=== PATIENT | male | born 1965 | race Caucasian/White ===

== ENCOUNTER 2019-12-15 20:48 | Observation (INO) | payer OTHER ==
[2019-12-15] MEDS ORDERED: Sodium Chloride 0.9% 1000 ML 1,000 ML IV STA (21:08)
[2019-12-15] MEDS ORDERED: TYLENOL 325 MG PO STA (21:08)
[2019-12-15] MEDS ORDERED: ROCEPHIN 1 Gm-D5w 50 ml Bag** 1 G/50 ML IVPB IV STA (21:08)
--- NOTE | 2019-12-15 21:10 | ERPHSYRPT ---
- History of Present Illness Time Seen by Provider: 12/15/19 21:00 Source: patient Exam Limitations: no limitations Patient Subjective Stated Complaint: Fever Allergies/Adverse Reactions: No Known Drug Allergies Allergy (Unverified 12/15/19 20:53) Ordered Tests: Active Orders 24 hr Category Date Time Status IV Insertion STAT Care 12/15/19 21:08 Ordered CHEST 1 VIEW (PORTABLE) Stat Exams 12/15/19 21:09 Ordered BLOOD CULTURE Stat Lab 12/15/19 21:09 Ordered CBC W DIFF Stat Lab 12/15/19 21:08 Ordered CMP Stat Lab 12/15/19 21:08 Ordered Lactic Acid Stat Lab 12/15/19 21:08 Ordered UA W/RFX UR CULTURE Stat Lab 12/15/19 21:08 Uncollected Medication Summary Generic Name Dose Route Start Last Admin Trade Name Freq PRN Reason Stop Dose Admin Acetaminophen 650 mg 12/15/19 21:08 Tylenol 325 Mg PO 12/15/19 21:09 STAT STA Sodium Chloride 1,000 mls @ 999 mls/hr 12/15/19 21:08 Sodium Chloride 0.9% 1000 Ml IV 12/15/19 22:08 .Q1H1M STA Ceftriaxone Sodium/Dextrose 1 g in 50 mls @ 100 mls/hr 12/15/19 21:08 Rocephin 1 Gm-D5w 50 Ml Bag IV 12/15/19 21:37 STAT STA - Departure Referrals: CRISTIANO REN [Primary Care Provider] -
--- NOTE | 2019-12-15 21:21 | ERPHSYRPT ---
- History of Present Illness Time Seen by Provider: 12/15/19 21:00 Source: patient Exam Limitations: no limitations Patient Subjective Stated Complaint: "my heart rate is high and I have a fever." Triage Nursing Assessment: pt presented alert et oriented x3 answering questions appropriately. Pt reported high fever and high heart rate at home. pt reported history of colorectal cancer with metastisis to the liver. Pt reported taking Xeloda for home chemo treatemnt. Pt denied headache, dizziness, nausea/vomiting, diarrhea, chest pain, or shortness of breath. Pupils 3mm reactive. Oral mucosa pink/dry with sores noted to the lips. neck supple non-tender without noted JVD. Symmetrical chest expansion. Lungs clear with adequate airflow. Heart tones regular/clear. radial pulses equal bilateral. Abdomen soft non-distended and non-tender. Bowel sounds present in all quadrants. No noted dependent edema. Physician History: K/C/O Stage 4 Colon ca with Liver mets, on Xeloda, PO Chemo. Last one was 2 days ago. Fever for 2 days, not feeling well and HR is high ( 103) Timing/Duration: day(s) (2) Severity: moderate Associated Symptoms: other (Palpitations) Allergies/Adverse Reactions: No Known Drug Allergies Allergy (Unverified 12/15/19 20:53) Home Medications: Alprazolam 1 mg [Xanax 1 mg] 1 tab PO BID 12/15/19 [History] Calcium Carbonate 1 tab PO DAILY 12/15/19 [History] Capecitabine [Xeloda] 4 tab PO BID 12/15/19 [History] Cholecalciferol (Vitamin D3) [Vitamin D3] 1 tab PO DAILY 12/15/19 [History] Colestipol HCl [Colestid] 2 tab PO BID 12/15/19 [History] Dicyclomine HCl 1 cap PO TID 12/15/19 [History] Diphenoxylate HCl/Atropine [Lomotil 2.5-0.025 mg Tablet] 2 tab PO QID PRN 12/15/19 [History] Doxycycline Hyclate 100 mg [Vibramycin 100 MG] 1 cap PO BID 12/15/19 [History] Famotidine [Pepcid] 1 tab PO DAILY 12/15/19 [History] Hydrocodone/Acetaminophen [Hydrocodone-Acetamin 5-325 mg] 1 tab PO Q6H PRN 12/15/19 [History] Hydrocortisone 2.5% 30 gm [Anusol-Hc 2.5% Cream 30 gm] 1 unit TOP DAILY 12/15/19 [History] Loperamide HCl [Loperamide] 2 tab PO DAILY PRN 12/15/19 [History] Nystatin/TCN/Hc/Diphenhydram [Alma's Magic Mouthwash] 5 ml PO QID 12/15/19 [History] Ondansetron [Ondansetron Odt] 2 tab PO TID 12/15/19 [History] Oxycodone HCl/Acetaminophen [Oxycodone-Acetaminophen 5-325] 1 tab PO Q4H PRN 12/15/19 [History] Potassium Chloride [Klor-Con M20] 2 tab PO DAILY 12/15/19 [History] Prochlorperazine Maleate 10 mg [Compazine 10 mg] 1 tab PO Q6H PRN 12/15/19 [History] Sertraline HCl 50 mg [Zoloft 50 mg Tablet] 1 tab PO AC 12/15/19 [History] Hx Tetanus, Diphtheria Vaccination/Date Given: Yes Travel Risk - International Travel Have you traveled outside of the country in past 3 weeks: No - Coronavirus Screening Are you exhibiting any of the following symptoms?: Yes Symptoms: Fever Close contact with a COVID-19 positive Pt in past 14-21 Days: No - Review of Systems Constitutional: Fever, Chills Eyes: No Symptoms Ears, Nose, & Throat: No Symptoms Respiratory: No Cough, No Dyspnea Cardiac: Palpitations, No Chest Pain, No Edema, No Syncope Abdominal/Gastrointestinal: No Abdominal Pain, No Nausea, No Vomiting, No Diarrhea Genitourinary Symptoms: No Dysuria Musculoskeletal: No Back Pain, No Neck Pain Skin: No Rash Neurological: No Dizziness, No Focal Weakness, No Sensory Changes Psychological: No Symptoms Endocrine: No Symptoms All Other Systems: Reviewed and Negative - Past Medical History Pertinent Past Medical History: Yes Neurological History: No Pertinent History ENT History: No Pertinent History Cardiac History: Hypertension Respiratory History: No Pertinent History Endocrine Medical History: No Pertinent History GI Medical History: Colorectal Cancer, Liver Cancer Psycho-Social History: Anxiety - Past Surgical History Past Surgical History: Yes Other Surgical History: Port placed to right chest - Social History Smoking Status: Never smoker Exposure to second hand smoke: No Drug Use: none Patient Lives Alone: No - Nursing Vital Signs Nursing Vital Signs: Initial Vital Signs Temperature 102.8 F 12/15/19 20:49 Pulse Rate 105 H 12/15/19 20:49 Respiratory Rate 18 12/15/19 20:49 Blood Pressure 157/78 12/15/19 20:49 O2 Sat by Pulse Oximetry 97 12/15/19 20:49 Pain Scale Pain Intensity 0 - Physical Exam General Appearance: no apparent distress, alert Eye Exam: PERRL/EOMI, eyes nml inspection Ears, Nose, Throat Exam: normal ENT inspection, TMs normal, pharynx normal, moist mucous membranes Neck Exam: normal inspection, non-tender, supple, full range of motion Respiratory Exam: normal breath sounds, lungs clear, No respiratory distress Cardiovascular Exam: regular rate/rhythm, normal heart sounds, normal peripheral pulses Gastrointestinal/Abdomen Exam: soft, normal bowel sounds, No tenderness, No mass Back Exam: normal inspection, normal range of motion, No CVA tenderness, No vertebral tenderness Extremity Exam: normal inspection, normal range of motion, pelvis stable Neurologic Exam: alert, oriented x 3, cooperative, normal mood/affect, nml cerebellar function, nml station & gait, sensation nml, No motor deficits Skin Exam: normal color, warm, dry, No rash Lymphatic Exam: No adenopathy SpO2: 97 - Course Nursing assessment & vital signs reviewed: Yes - Radiology Exams Chest X-ray Interpretation: Interpreted by me, No Pneumonia Ordered Tests: Active Orders 24 hr Category Date Time Status EKG-ER Only STAT Care 12/15/19 21:21 Active IV Insertion STAT Care 12/15/19 21:08 Active Order K Level 2 hours post-inf 2 HRS POST K-INFUSED Care 12/15/19 22:12 Active Telemetry q4h Care 12/15/19 22:12 Active CHEST 1 VIEW (PORTABLE) Stat Exams 12/15/19 21:09 Taken BLOOD CULTURE Stat Lab 12/15/19 21:40 Received CBC W DIFF Stat Lab 12/15/19 21:30 Completed CMP Stat Lab 12/15/19 21:30 Completed Lactic Acid Stat Lab 12/15/19 21:08 Completed Lactic Acid Stat Lab 12/15/19 23:28 Received TROPONIN Stat Lab 12/15/19 21:30 Completed UA W/RFX UR CULTURE Stat Lab 12/15/19 23:00 Completed Medication Summary Generic Name Dose Route Start Last Admin Trade Name Nehemias PRN Reason Stop Dose Admin Potassium Chloride 20 meq in 100 mls @ 50 mls/hr 12/15/19 22:12 12/15/19 22:27 Potassium Chloride 20 Meq In Water 100ml IV 12/16/19 00:11 50 mls/hr STAT ONE Administration Discontinued Medications Generic Name Dose Route Start Last Admin Trade Name Nehemias EWINGN Reason Stop Dose Admin Acetaminophen 650 mg 12/15/19 21:08 12/15/19 21:49 Tylenol 325 Mg PO 12/15/19 21:09 650 mg STAT STA Administration Acetaminophen Confirm 12/15/19 21:43 Tylenol 325 Mg Administered 12/15/19 21:44 Dose 650 mg .ROUTE .STK-MED ONE Sodium Chloride 1,000 mls @ 999 mls/hr 12/15/19 21:08 12/15/19 23:04 Sodium Chloride 0.9% 1000 Ml IV 12/15/19 22:08 Infused .Q1H1M STA Infusion Ceftriaxone Sodium/Dextrose 1 g in 50 mls @ 100 mls/hr 12/15/19 21:08 22:28 Rocephin 1 Gm-D5w 50 Ml Bag IV 12/15/19 21:37 Infused STAT STA Infusion Sodium Chloride Confirm 12/15/19 21:43 Sodium Chloride 0.9% 1000 Ml Administered 12/15/19 21:44 Dose 1,000 mls @ ud .ROUTE .STK-MED ONE Ceftriaxone Sodium/Dextrose Confirm 12/15/19 21:43 Rocephin 1 Gm-D5w 50 Ml Bag Administered 12/15/19 21:44 Dose 1 g in 50 mls @ ud IV .STK-MED ONE Potassium Chloride Confirm 12/15/19 22:16 Potassium Chloride 20 Meq In Water 100ml Administered 12/15/19 22:17 Dose 100 mls @ ud IV .STK-MED ONE Lactated Ringer's 1,000 mls @ 999 mls/hr 12/15/19 22:24 12/15/19 23:43 Lactated Ringers IV 12/15/19 23:24 Infused .Q1H1M ONE Infusion Lactated Ringer's Confirm 12/15/19 22:26 Lactated Ringers Administered 12/15/19 22:27 Dose 1,000 mls @ ud IV .STK-MED ONE Potassium Chloride 40 meq 12/15/19 22:12 12/15/19 22:27 Klor Con 10 Meq PO 12/15/19 22:13 40 meq STAT ONE Administration Potassium Chloride Confirm 12/15/19 22:16 Klor Con 10 Meq Administered 12/15/19 22:17 Dose 40 meq PO .STK-MED ONE Lab/Rad Data: Laboratory Result Diagrams 12/15/19 21:30 12/15/19 21:30 Laboratory Results 12/15/19 12/15/19 12/15/19 Range/Units 23:00 23:00 21:30 WBC (4.0-10.5) K/mm3 RBC (4.1-5.6) M/mm3 Hgb (12.5-18.0) gm/dl Hct (42-50) % MCV (78-100) fl MCH (26-32) pg MCHC (32-36) g/dl RDW (11.5-14.0) % Plt Count (150-450) K/mm3 MPV (7.5-11.0) fl Gran % (36.0-66.0) % Eos # (Auto) (0-0.5) Absolute Lymphs (auto) (1.0-4.6) Absolute Monos (auto) (0.0-1.3) Lymphocytes % (24.0-44.0) % Monocytes % (0.0-12.0) % Eosinophils % (0.00-5.0) % Basophils % (0.0-0.4) % Absolute Granulocytes (1.4-6.9) Basophils # (0-0.4) Sodium (137-145) mmol/L Potassium (3.5-5.1) mmol/L Chloride (98-107) mmol/L Carbon Dioxide (22-30) mmol/L Anion Gap (5-15) MEQ/L BUN (9-20) mg/dL Creatinine (0.66-1.25) mg/dL Estimated GFR ML/MIN Glucose (74-106) mg/dL Lactic Acid (0.4-2.0) Calcium (8.4-10.2) mg/dL Total Bilirubin (0.2-1.3) mg/dL AST (17-59) U/L ALT (0-50) U/L Alkaline Phosphatase (38-126) U/L Troponin I < 0.012 (0.000-0.034) ng/mL Serum Total Protein (6.3-8.2) g/dL Albumin (3.5-5.0) g/dL Urine Color YELLOW (YELLOW) Urine Appearance CLEAR (CLEAR) Urine pH 5.0 (5-6) Ur Specific [place] 1.024 (1.005-1.025) Urine Protein 100 (Negative) Urine Ketones NEGATIVE (NEGATIVE) Urine Blood SMALL (0-5) Faisal/ul Urine Nitrite NEGATIVE (NEGATIVE) Urine Bilirubin NEGATIVE (NEGATIVE) Urine Urobilinogen 4 (0-1) mg/dL Ur Leukocyte Esterase NEGATIVE (NEGATIVE) Urine WBC (Auto) 3-5 (0-5) /HPF Urine RBC (Auto) 6-10 (0-2) /HPF U Epithel Cells (Auto) NONE (FEW) /HPF Urine Bacteria (Auto) NONE (NEGATIVE) /HPF Urine Mucus (Auto) SLIGHT (NEGATIVE) /HPF Urine Culture Reflexed NO (NO) Urine Glucose NEGATIVE (NEGATIVE) mg/dL Influenza Type A Ag NEGATIVE (NEGATIVE) Influenza Type B Ag NEGATIVE (NEGATIVE) RSV (PCR) NEGATIVE (Negative) Group A Strep Antibody (NEGATIVE) Slides for Path Review 12/15/19 12/15/19 12/15/19 Range/Units 21:30 21:30 21:30 WBC 9.4 (4.0-10.5) K/mm3 RBC 4.38 (4.1-5.6) M/mm3 Hgb 12.0 L (12.5-18.0) gm/dl Hct 37.9 L (42-50) % MCV 86.5 (78-100) fl MCH 27.4 (26-32) pg MCHC 31.7 L (32-36) g/dl RDW 24.1 H (11.5-14.0) % Plt Count 132 L (150-450) K/mm3 MPV 10.7 (7.5-11.0) fl Gran % 74.8 H (36.0-66.0) % Eos # (Auto) 0.06 (0-0.5) Absolute Lymphs (auto) 1.21 (1.0-4.6) Absolute Monos (auto) 1.08 (0.0-1.3) Lymphocytes % 12.9 L (24.0-44.0) % Monocytes % 11.5 (0.0-12.0) % Eosinophils % 0.6 (0.00-5.0) % Basophils % 0.2 (0.0-0.4) % Absolute Granulocytes 7.02 H (1.4-6.9) Basophils # 0.02 (0-0.4) Sodium 133 L (137-145) mmol/L Potassium 2.8 L* (3.5-5.1) mmol/L Chloride 95 L (98-107) mmol/L Carbon Dioxide 29 (22-30) mmol/L Anion Gap 11.8 (5-15) MEQ/L BUN 14 (9-20) mg/dL Creatinine 0.97 (0.66-1.25) mg/dL Estimated GFR > 60.0 ML/MIN Glucose 137 H (74-106) mg/dL Lactic Acid (0.4-2.0) Calcium 8.5 (8.4-10.2) mg/dL Total Bilirubin 1.40 H (0.2-1.3) mg/dL AST 42 (17-59) U/L ALT 22 (0-50) U/L Alkaline Phosphatase 134 H (38-126) U/L Troponin I (0.000-0.034) ng/mL Serum Total Protein 7.5 (6.3-8.2) g/dL Albumin 3.8 (3.5-5.0) g/dL Urine Color (YELLOW) Urine Appearance (CLEAR) Urine pH (5-6) Ur Specific [place] (1.005-1.025) Urine Protein (Negative) Urine Ketones (NEGATIVE) Urine Blood (0-5) Faisal/ul Urine Nitrite (NEGATIVE) Urine Bilirubin (NEGATIVE) Urine Urobilinogen (0-1) mg/dL Ur Leukocyte Esterase (NEGATIVE) Urine WBC (Auto) (0-5) /HPF Urine RBC (Auto) (0-2) /HPF U Epithel Cells (Auto) (FEW) /HPF Urine Bacteria (Auto) (NEGATIVE) /HPF Urine Mucus (Auto) (NEGATIVE) /HPF Urine Culture Reflexed (NO) Urine Glucose (NEGATIVE) mg/dL Influenza Type A Ag (NEGATIVE) Influenza Type B Ag (NEGATIVE) RSV (PCR) (Negative) Group A Strep Antibody NOT DETECTED (NEGATIVE) Slides for Path Review YES 12/15/19 Range/Units 21:08 WBC (4.0-10.5) K/mm3 RBC (4.1-5.6) M/mm3 Hgb (12.5-18.0) gm/dl Hct (42-50) % MCV (78-100) fl MCH (26-32) pg MCHC (32-36) g/dl RDW (11.5-14.0) % Plt Count (150-450) K/mm3 MPV (7.5-11.0) fl Gran % (36.0-66.0) % Eos # (Auto) (0-0.5) Absolute Lymphs (auto) (1.0-4.6) Absolute Monos (auto) (0.0-1.3) Lymphocytes % (24.0-44.0) % Monocytes % (0.0-12.0) % Eosinophils % (0.00-5.0) % Basophils % (0.0-0.4) % Absolute Granulocytes (1.4-6.9) Basophils # (0-0.4) Sodium (137-145) mmol/L Potassium (3.5-5.1) mmol/L Chloride (98-107) mmol/L Carbon Dioxide (22-30) mmol/L Anion Gap (5-15) MEQ/L BUN (9-20) mg/dL Creatinine (0.66-1.25) mg/dL Estimated GFR ML/MIN Glucose (74-106) mg/dL Lactic Acid 2.3 H (0.4-2.0) Calcium (8.4-10.2) mg/dL Total Bilirubin (0.2-1.3) mg/dL AST (17-59) U/L ALT (0-50) U/L Alkaline Phosphatase (38-126) U/L Troponin I (0.000-0.034) ng/mL Serum Total Protein (6.3-8.2) g/dL Albumin (3.5-5.0) g/dL Urine Color (YELLOW) Urine Appearance (CLEAR) Urine pH (5-6) Ur Specific [place] (1.005-1.025) Urine Protein (Negative) Urine Ketones (NEGATIVE) Urine Blood (0-5) Faisal/ul Urine Nitrite (NEGATIVE) Urine Bilirubin (NEGATIVE) Urine Urobilinogen (0-1) mg/dL Ur Leukocyte Esterase (NEGATIVE) Urine WBC (Auto) (0-5) /HPF Urine RBC (Auto) (0-2) /HPF U Epithel Cells (Auto) (FEW) /HPF Urine Bacteria (Auto) (NEGATIVE) /HPF Urine Mucus (Auto) (NEGATIVE) /HPF Urine Culture Reflexed (NO) Urine Glucose (NEGATIVE) mg/dL Influenza Type A Ag (NEGATIVE) Influenza Type B Ag (NEGATIVE) RSV (PCR) (Negative) Group A Strep Antibody (NEGATIVE) Slides for Path Review - Progress Progress: improved Progress Note: And is feeling better. Fever has come down. Patient is nontoxic. Lactic acid is 2.3. I discussed with Dr. Nelson and she agreed with admission. I discussed this with patient and his . Since patient has a colon cancer and he is on chemotherapy, we will go ahead and swab him for COVID also. 12/16/19 00:07 Discussed with : Suha Will see patient in: hospital (observation) Counseled pt/family regarding: lab results, diagnosis, rad results - Departure Departure Disposition: Observation Clinical Impression: Hypokalemia Fever Qualifiers: Fever type: unspecified Qualified Code(s): R50.9 - Fever, unspecified Condition: Stable Critical Care Time: No Referrals: CRISTIANO REN [Primary Care Provider] -
[2019-12-15] MEDS ORDERED: TYLENOL 325 MG ONE (21:43)
[2019-12-15] MEDS ORDERED: ROCEPHIN 1 Gm-D5w 50 ml Bag** 1 G/50 ML IVPB IV ONE (21:43)
[2019-12-15] MEDS ORDERED: Sodium Chloride 0.9% 1000 ML 1,000 ML ONE (21:43)
[2019-12-15 21:56] LABS: Absolute Neutrophil Ct (ANC) 7.02 (1.4-6.9); BASOPHIL % 0.2 % (0.0-0.4); Basophil (Absolute #) 0.02 (0-0.4); Eosinophil % 0.6 % (0.00-5.0); Eosinophil (Absolute #) 0.06 (0-0.5); Hematocrit 37.9 % (42-50); Lymphocyte (Absolute #) 1.21 (1.0-4.6); Lymphocytes % 12.9 % (24.0-44.0); Mean Cell Volume 86.5 fl (78-100); Mean Corpuscular Hemoglobin 27.4 pg (26-32); Mean Corpuscular Hgb Concent. 31.7 g/dl (32-36); Mean Platelet Volume 10.7 fl (7.5-11.0); Monocyte (Absolute #) 1.08 (0.0-1.3); Monocytes % 11.5 % (0.0-12.0); Neutrophil % 74.8 % (36.0-66.0); Platelet Count 132 K/mm3 (150-450); Red Blood Count 4.38 M/mm3 (4.1-5.6); Red Cell Distribution Width 24.1 % (11.5-14.0); White Blood Count 9.4 K/mm3 (4.0-10.5)
[2019-12-15 22:05] LABS: ALBUMIN 3.8 g/dL (3.5-5.0); ALKALINE PHOSPHATASE 134 U/L (38-126); ANION GAP 11.8 MEQ/L (5-15); BLOOD UREA NITROGEN 14 mg/dL (9-20); CHLORIDE 95 mmol/L (98-107); Calcium 8.5 mg/dL (8.4-10.2); Carbon Dioxide 29 mmol/L (22-30); Creatinine 1 0.97 mg/dL (0.66-1.25); Glucose 137 mg/dL (74-106); SGOT/AST 42 U/L (17-59); SGPT/ALT 22 U/L (0-50); SODIUM 133 mmol/L (137-145); Total Protein 7.5 g/dL (6.3-8.2)
[2019-12-15 22:12] LABS: Potassium 2.8 mmol/L (3.5-5.1)
[2019-12-15] MEDS ORDERED: Klor Con 10 MEQ PO ONE ×2 (22:12→22:16)
[2019-12-15] MEDS ORDERED: POTASSIUM CHLORIDE 20 mEq IN WATER 100ML 20 MEQ/100 ML BAG IV ONE (22:12)
[2019-12-15] MEDS ORDERED: POTASSIUM CHLORIDE 20 mEq IN WATER 100ML 100 ML IV ONE (22:16)
[2019-12-15] MEDS ORDERED: Lactated Ringers 1,000 ML IV ONE ×2 (22:24→22:26)
[2019-12-15 23:24] LABS: Appearance CLEAR (CLEAR); Bilirubin NEGATIVE (NEGATIVE); Blood SMALL Ery/ul (0-5); Glucose NEGATIVE (NEGATIVE); Ketones NEGATIVE (NEGATIVE); Leukocyte Esterase NEGATIVE (NEGATIVE); Mucus SLIGHT /HPF (NEGATIVE); Nitrite NEGATIVE (NEGATIVE); Protein,Urine Dip 100 (Negative); Specific Gravity 1.024 (1.005-1.025); Urobilinogen 4 mg/dL (0-1)
[2019-12-15 23:35] LABS: Slide Review 1 YES
[2019-12-15 23:41] LABS: INFLUENZA A NEGATIVE (NEGATIVE); INFLUENZA B NEGATIVE (NEGATIVE); RESPIRATORY SYNCTIAL VIRUS NEGATIVE (Negative)
[2019-12-16] MEDS: Sodium Chloride 0.9% 1000 ML 1,000 ML IV SCH ×2 (01:56→11:17)
[2019-12-16] MEDS: TYLENOL 325 MG PO PRN ×3 (03:46→19:36)
[2019-12-16 04:05] LABS: ALBUMIN 3.1 g/dL (3.5-5.0); ALKALINE PHOSPHATASE 115 U/L (38-126); ANION GAP 10.2 MEQ/L (5-15); BLOOD UREA NITROGEN 12 mg/dL (9-20); CHLORIDE 97 mmol/L (98-107); Calcium 7.7 mg/dL (8.4-10.2); Carbon Dioxide 27 mmol/L (22-30); Creatinine 1 0.78 mg/dL (0.66-1.25); Glucose 127 mg/dL (74-106); SGOT/AST 35 U/L (17-59); SGPT/ALT 19 U/L (0-50); SODIUM 131 mmol/L (137-145); Total Protein 6.5 g/dL (6.3-8.2)
[2019-12-16] MEDS ORDERED: Klor Con 10 MEQ PO ONE ×3 (06:12→18:42)
--- NOTE | 2019-12-16 08:43 | XRAY ---
Indication: Fever. Comparison: August 13, 2010. Portable chest remains clear. Heart is not enlarged with new right Port-A-Cath. Bony thorax intact. Impression: Nonacute chest.
[2019-12-16] MEDS ORDERED: PROCHLORPERAZINE MALEATE 10 MG PO PRN (08:55)
[2019-12-16] MEDS ORDERED: NON-FORMULARY ITEM (Nystatin/Tcn/Hc/Diphenhydram** [Mary's Magic Mouthwash***] 5 ML) PO PRN (08:55)
[2019-12-16] MEDS ORDERED: XANAX 1 MG PO PRN (08:55)
[2019-12-16] MEDS ORDERED: MEDICATION INTERVENTION MC SCH ×2 (09:15→09:30)
[2019-12-16] MEDS ORDERED: POTASSIUM CHLORIDE 20 mEq IN WATER 100ML 20 MEQ/100 ML BAG IV SCH (09:15)
[2019-12-16] MEDS ORDERED: Ambien 10 MG PO PRN (09:15)
[2019-12-16 09:32] LABS: Hematocrit 35.3 % (42-50); Hemoglobin 11.3 gm/dl (12.5-18.0); Mean Cell Volume 86.9 fl (78-100); Mean Corpuscular Hemoglobin 27.8 pg (26-32); Mean Platelet Volume 10.5 fl (7.5-11.0); Platelet Count 131 K/mm3 (150-450); Red Blood Count 4.06 M/mm3 (4.1-5.6); Red Cell Distribution Width 23.7 % (11.5-14.0); White Blood Count 7.7 K/mm3 (4.0-10.5)
[2019-12-16] MEDS ORDERED: MARY'S MOUTHWASH PO PRN (09:45)
[2019-12-16] MEDS ORDERED: Compazine 5 MG PO PRN (09:48)
[2019-12-16] MEDS ORDERED: Zithromax 500 MG/ 250 ML NaCl Premix 500 MG/250 ML IVPB IV SCH (10:00)
[2019-12-16] MEDS ORDERED: Vibramycin 100 MG PO SCH (10:00)
[2019-12-16] MEDS ORDERED: CAPECITABINE PO SCH (10:00)
[2019-12-16 10:22] LABS: Slide Review YES
[2019-12-16 10:34] LABS: Potassium 3.3 mmol/L (3.5-5.1)
[2019-12-16 10:56] LABS: MAGNESIUM 0.6 mg/dL (1.6-2.3)
[2019-12-16] MEDS ORDERED: Magnesium Sulfate 1 GM/2 ML VIAL*** 2 GM in Sodium Chloride 0.9% 100 ML IVPB 100 ML IV ONE (11:30)
[2019-12-16] MEDS ORDERED: Sodium Chloride 0.9% 100 ML IVPB 0 ML IV ONE (11:38)
[2019-12-16 17:55] LABS: ANION GAP 9.6 MEQ/L (5-15); BLOOD UREA NITROGEN 11 mg/dL (9-20); CHLORIDE 100 mmol/L (98-107); Calcium 7.8 mg/dL (8.4-10.2); Carbon Dioxide 26 mmol/L (22-30); Creatinine 1 0.75 mg/dL (0.66-1.25); Glucose 117 mg/dL (74-106); Potassium 3.5 mmol/L (3.5-5.1); SODIUM 132 mmol/L (137-145)
[2019-12-16 18:27] LABS: ANION GAP 9.3 MEQ/L (5-15); BLOOD UREA NITROGEN 10 mg/dL (9-20); CHLORIDE 103 mmol/L (98-107); Carbon Dioxide 26 mmol/L (22-30); Glucose 133 mg/dL (74-106); Potassium 3.4 mmol/L (3.5-5.1); SODIUM 134 mmol/L (137-145)
[2019-12-16 18:29] LABS: MAGNESIUM 0.9 mg/dL (1.6-2.3)
[2019-12-16] MEDS: Magnesium 1 Gm / 100 Ml D5W*** 100 ML IV SCH ×2 (18:54→19:50)
--- NOTE | 2019-12-16 19:01 | PCM.HP ---
History of Present Illness - Chief Complaint Chief Complaint: Fever, hypokalemia Date: 12/16/19 History of Present Illness: is a 54 year old male seen and examined this am following ER admission for hypokalemia and fever. Patient reports fever for two days. He reports a hx of colon cancer and is on chemo. He reports that he recently saw the cancer specialist and was started on HCTZ due to elevated bp that he had had the last three visits. Patient reports that he has been on potassium supplementation but that it was not increased when starting on HCTZ. Patient reports that he was not experiencing diarrhea until this am when he had two episodes. Patient reports that he has an appt with his cancer specialist this Monday. He reports he takes all of his medications as directed. He denies any chest pain cough cold symptoms nausea vomiting or constipation darks stools or blood in his stool. He reports that he does not drink a lot of water. Patient denies any painful urination or frequency. Patient denies any fevers this am. - Review of Systems Constitutional: Fever Ears, Nose, & Throat: No Symptoms Respiratory: No Cough, No Short Of Breath, No Wheezing Cardiac: No Chest Pain, No Edema Abdominal/Gastrointestinal: Diarrhea, No Abdominal Pain, No Nausea, No Vomiting, No Constipation, No Hematochezia, No Melena Genitourinary Symptoms: No Dysuria, No Frequency, No Hematuria Musculoskeletal: No Symptoms Skin: Skin Lesions (Patient reports that since the cancer treatment his skin has become extremely dry), Dryness Neurological: No Headache Psychological: No Alcohol Abuse, No Drug Abuse, No Anxiety, No Depression Medications & Allergies Home Medications: Home Medication List Alprazolam 1 mg [Xanax 1 mg] 1 tab PO BID PRN PRN 12/15/19 [History Confirmed 12/16/19] Capecitabine [Xeloda] 4 tab PO BID 12/15/19 [History Confirmed 12/16/19] Cholecalciferol (Vitamin D3) [Vitamin D3] 1 tab PO HS 12/15/19 [History Confirmed 12/16/19] Hydrocortisone 2.5% 30 gm [Anusol-Hc 2.5% Cream 30 gm] 1 unit TOP HS 12/15/19 [History Confirmed 12/16/19] Nystatin/TCN/Hc/Diphenhydram [Alma's Magic Mouthwash] 5 ml PO QID PRN PRN 12/15/19 [History Confirmed 12/16/19] Potassium Chloride [Klor-Con M20] 1 tab PO HS 12/15/19 [History Confirmed 12/16/19] Prochlorperazine Maleate 10 mg [Compazine 10 mg] 1 tab PO Q6H PRN PRN 12/15/19 [History Confirmed 12/16/19] Sertraline HCl 50 mg [Zoloft 50 mg Tablet] 1 tab PO HS 12/15/19 [History Confirmed 12/16/19] Ascorbic Acid [Vitamin C] 500 mg PO HS 12/16/19 [History Confirmed 12/16/19] Allergies/Adverse Reactions: Allergies Allergy/AdvReac Type Severity Reaction Status Date / Time No Known Drug Allergies Allergy Unverified 12/15/19 20:53 - Past Medical History Past Medical History: Yes Neurological History: No Pertinent History ENT History: No Pertinent History Cardiac History: Hypertension Respiratory History: No Pertinent History Endocrine Medical History: No Pertinent History GI Medical History: Colorectal Cancer, Liver Cancer Pyscho-Social History: Anxiety - Past Surgical History Past Surgical History: Yes Neuro Surgical History: No Pertinent History Cardiac History: No Pertinent History Respiratory Surgery: No Pertinent History GI Surgical History: No Pertinent History Genitourinary Surgical Hx: No Pertinent History Other Surgical History: Port placed to right chest, liver biopsy - Social History Smoking Status: Never smoker Exposure to second hand smoke: No Alcohol: None Drug Use: none - Physical Exam Vital Signs: Vital Signs - 24 hr Temp Pulse Resp BP Pulse Ox 12/16/19 16:00 98.2 F 76 18 120/62 96 12/16/19 11:54 101 F 81 17 119/70 94 L 12/16/19 08:00 17 12/16/19 07:26 98.8 F 79 17 119/74 95 12/16/19 03:30 101.4 F 12/16/19 02:22 99.0 F 80 16 123/71 95 12/16/19 00:35 79 22 108/71 96 12/16/19 00:17 97 12/16/19 00:00 98.7 F 80 18 111/73 95 12/15/19 23:00 100.3 F 88 18 130/79 98 12/15/19 22:00 87 18 135/79 99 12/15/19 21:59 92 H 107/71 98 12/15/19 20:49 102.8 F 105 H 18 157/78 97 General Appearance: no apparent distress Neurologic Exam: alert, oriented x 3, cooperative, normal mood/affect, No disoriented, No confusion Eye Exam: No scleral icterus Ears, Nose, Throat Exam: moist mucous membranes, other (stomatitis) Neck Exam: normal inspection Respiratory Exam: normal breath sounds, lungs clear, No chest tenderness, No respiratory distress, No diminished breath sounds, No wheezing Cardiovascular Exam: regular rate/rhythm, normal heart sounds, No murmur, No friction rub, No gallop Gastrointestinal/Abdomen Exam: soft, normal bowel sounds, No tenderness, No distention Rectal Exam: not done Extremity Exam: normal inspection, No pedal edema, No swelling Skin Exam: warm, dry, other (multiple small skin lesions and dry skin), No normal color, No pale Results - Labs Lab/Micro Results: Lab Results-Last 24 Hours 12/15/19 12/15/19 12/15/19 Range/Units 21:08 21:30 21:30 WBC 9.4 (4.0-10.5) K/mm3 RBC 4.38 (4.1-5.6) M/mm3 Hgb 12.0 L (12.5-18.0) gm/dl Hct 37.9 L (42-50) % MCV 86.5 (78-100) fl MCH 27.4 (26-32) pg MCHC 31.7 L (32-36) g/dl RDW 24.1 H (11.5-14.0) % Plt Count 132 L (150-450) K/mm3 MPV 10.7 (7.5-11.0) fl Gran % 74.8 H (36.0-66.0) % Eos # (Auto) 0.06 (0-0.5) Absolute Lymphs (auto) 1.21 (1.0-4.6) Absolute Monos (auto) 1.08 (0.0-1.3) Lymphocytes % 12.9 L (24.0-44.0) % Monocytes % 11.5 (0.0-12.0) % Eosinophils % 0.6 (0.00-5.0) % Basophils % 0.2 (0.0-0.4) % Absolute Granulocytes 7.02 H (1.4-6.9) Basophils # 0.02 (0-0.4) Sodium 133 L (137-145) mmol/L Potassium 2.8 L* (3.5-5.1) mmol/L Chloride 95 L (98-107) mmol/L Carbon Dioxide 29 (22-30) mmol/L Anion Gap 11.8 (5-15) MEQ/L BUN 14 (9-20) mg/dL Creatinine 0.97 (0.66-1.25) mg/dL Estimated GFR > 60.0 ML/MIN Glucose 137 H (74-106) mg/dL Lactic Acid 2.3 H (0.4-2.0) Calcium 8.5 (8.4-10.2) mg/dL Magnesium (1.6-2.3) mg/dL Total Bilirubin 1.40 H (0.2-1.3) mg/dL AST 42 (17-59) U/L ALT 22 (0-50) U/L Alkaline Phosphatase 134 H (38-126) U/L Troponin I (0.000-0.034) ng/mL Serum Total Protein 7.5 (6.3-8.2) g/dL Albumin 3.8 (3.5-5.0) g/dL Urine Color (YELLOW) Urine Appearance (CLEAR) Urine pH (5-6) Ur Specific [place] (1.005-1.025) Urine Protein (Negative) Urine Ketones (NEGATIVE) Urine Blood (0-5) Faisal/ul Urine Nitrite (NEGATIVE) Urine Bilirubin (NEGATIVE) Urine Urobilinogen (0-1) mg/dL Ur Leukocyte Esterase (NEGATIVE) Urine WBC (Auto) (0-5) /HPF Urine RBC (Auto) (0-2) /HPF U Epithel Cells (Auto) (FEW) /HPF Urine Bacteria (Auto) (NEGATIVE) /HPF Urine Mucus (Auto) (NEGATIVE) /HPF Urine Culture Reflexed (NO) Urine Glucose (NEGATIVE) mg/dL Influenza Type A Ag (NEGATIVE) Influenza Type B Ag (NEGATIVE) RSV (PCR) (Negative) SARS-CoV-2 (PCR) (NEGATIVE) Group A Strep Antibody (NEGATIVE) Slides for Path Review YES 12/15/19 12/15/19 12/15/19 Range/Units 21:30 21:30 23:00 WBC (4.0-10.5) K/mm3 RBC (4.1-5.6) M/mm3 Hgb (12.5-18.0) gm/dl Hct (42-50) % MCV (78-100) fl MCH (26-32) pg MCHC (32-36) g/dl RDW (11.5-14.0) % Plt Count (150-450) K/mm3 MPV (7.5-11.0) fl Gran % (36.0-66.0) % Eos # (Auto) (0-0.5) Absolute Lymphs (auto) (1.0-4.6) Absolute Monos (auto) (0.0-1.3) Lymphocytes % (24.0-44.0) % Monocytes % (0.0-12.0) % Eosinophils % (0.00-5.0) % Basophils % (0.0-0.4) % Absolute Granulocytes (1.4-6.9) Basophils # (0-0.4) Sodium (137-145) mmol/L Potassium (3.5-5.1) mmol/L Chloride (98-107) mmol/L Carbon Dioxide (22-30) mmol/L Anion Gap (5-15) MEQ/L BUN (9-20) mg/dL Creatinine (0.66-1.25) mg/dL Estimated GFR ML/MIN Glucose (74-106) mg/dL Lactic Acid (0.4-2.0) Calcium (8.4-10.2) mg/dL Magnesium (1.6-2.3) mg/dL Total Bilirubin (0.2-1.3) mg/dL AST (17-59) U/L ALT (0-50) U/L Alkaline Phosphatase (38-126) U/L Troponin I < 0.012 (0.000-0.034) ng/mL Serum Total Protein (6.3-8.2) g/dL Albumin (3.5-5.0) g/dL Urine Color (YELLOW) Urine Appearance (CLEAR) Urine pH (5-6) Ur Specific [place] (1.005-1.025) Urine Protein (Negative) Urine Ketones (NEGATIVE) Urine Blood (0-5) Faisal/ul Urine Nitrite (NEGATIVE) Urine Bilirubin (NEGATIVE) Urine Urobilinogen (0-1) mg/dL Ur Leukocyte Esterase (NEGATIVE) Urine WBC (Auto) (0-5) /HPF Urine RBC (Auto) (0-2) /HPF U Epithel Cells (Auto) (FEW) /HPF Urine Bacteria (Auto) (NEGATIVE) /HPF Urine Mucus (Auto) (NEGATIVE) /HPF Urine Culture Reflexed (NO) Urine Glucose (NEGATIVE) mg/dL Influenza Type A Ag NEGATIVE (NEGATIVE) Influenza Type B Ag NEGATIVE (NEGATIVE) RSV (PCR) NEGATIVE (Negative) SARS-CoV-2 (PCR) (NEGATIVE) Group A Strep Antibody NOT DETECTED (NEGATIVE) Slides for Path Review 12/15/19 12/15/19 12/16/19 Range/Units 23:00 23:28 00:00 WBC (4.0-10.5) K/mm3 RBC (4.1-5.6) M/mm3 Hgb (12.5-18.0) gm/dl Hct (42-50) % MCV (78-100) fl MCH (26-32) pg MCHC (32-36) g/dl RDW (11.5-14.0) % Plt Count (150-450) K/mm3 MPV (7.5-11.0) fl Gran % (36.0-66.0) % Eos # (Auto) (0-0.5) Absolute Lymphs (auto) (1.0-4.6) Absolute Monos (auto) (0.0-1.3) Lymphocytes % (24.0-44.0) % Monocytes % (0.0-12.0) % Eosinophils % (0.00-5.0) % Basophils % (0.0-0.4) % Absolute Granulocytes (1.4-6.9) Basophils # (0-0.4) Sodium (137-145) mmol/L Potassium (3.5-5.1) mmol/L Chloride (98-107) mmol/L Carbon Dioxide (22-30) mmol/L Anion Gap (5-15) MEQ/L BUN (9-20) mg/dL Creatinine (0.66-1.25) mg/dL Estimated GFR ML/MIN Glucose (74-106) mg/dL Lactic Acid 1.1 (0.4-2.0) Calcium (8.4-10.2) mg/dL Magnesium (1.6-2.3) mg/dL Total Bilirubin (0.2-1.3) mg/dL AST (17-59) U/L ALT (0-50) U/L Alkaline Phosphatase (38-126) U/L Troponin I (0.000-0.034) ng/mL Serum Total Protein (6.3-8.2) g/dL Albumin (3.5-5.0) g/dL Urine Color YELLOW (YELLOW) Urine Appearance CLEAR (CLEAR) Urine pH 5.0 (5-6) Ur Specific [place] 1.024 (1.005-1.025) Urine Protein 100 (Negative) Urine Ketones NEGATIVE (NEGATIVE) Urine Blood SMALL (0-5) Faisal/ul Urine Nitrite NEGATIVE (NEGATIVE) Urine Bilirubin NEGATIVE (NEGATIVE) Urine Urobilinogen 4 (0-1) mg/dL Ur Leukocyte Esterase NEGATIVE (NEGATIVE) Urine WBC (Auto) 3-5 (0-5) /HPF Urine RBC (Auto) 6-10 (0-2) /HPF U Epithel Cells (Auto) NONE (FEW) /HPF Urine Bacteria (Auto) NONE (NEGATIVE) /HPF Urine Mucus (Auto) SLIGHT (NEGATIVE) /HPF Urine Culture Reflexed NO (NO) Urine Glucose NEGATIVE (NEGATIVE) mg/dL Influenza Type A Ag (NEGATIVE) Influenza Type B Ag (NEGATIVE) RSV (PCR) (Negative) SARS-CoV-2 (PCR) NEGATIVE (NEGATIVE) Group A Strep Antibody (NEGATIVE) Slides for Path Review 12/16/19 12/16/19 12/16/19 Range/Units 03:30 09:20 10:10 WBC 7.7 (4.0-10.5) K/mm3 RBC 4.06 L (4.1-5.6) M/mm3 Hgb 11.3 L (12.5-18.0) gm/dl Hct 35.3 L (42-50) % MCV 86.9 (78-100) fl MCH 27.8 (26-32) pg MCHC 32.0 (32-36) g/dl RDW 23.7 H (11.5-14.0) % Plt Count 131 L (150-450) K/mm3 MPV 10.5 (7.5-11.0) fl Gran % (36.0-66.0) % Eos # (Auto) (0-0.5) Absolute Lymphs (auto) (1.0-4.6) Absolute Monos (auto) (0.0-1.3) Lymphocytes % (24.0-44.0) % Monocytes % (0.0-12.0) % Eosinophils % (0.00-5.0) % Basophils % (0.0-0.4) % Absolute Granulocytes (1.4-6.9) Basophils # (0-0.4) Sodium 131 L (137-145) mmol/L Potassium 3.0 L 3.3 L (3.5-5.1) mmol/L Chloride 97 L (98-107) mmol/L Carbon Dioxide 27 (22-30) mmol/L Anion Gap 10.2 (5-15) MEQ/L BUN 12 (9-20) mg/dL Creatinine 0.78 (0.66-1.25) mg/dL Estimated GFR > 60.0 ML/MIN Glucose 127 H (74-106) mg/dL Lactic Acid (0.4-2.0) Calcium 7.7 L (8.4-10.2) mg/dL Magnesium 0.6 L* (1.6-2.3) mg/dL Total Bilirubin 1.10 (0.2-1.3) mg/dL AST 35 (17-59) U/L ALT 19 (0-50) U/L Alkaline Phosphatase 115 (38-126) U/L Troponin I (0.000-0.034) ng/mL Serum Total Protein 6.5 (6.3-8.2) g/dL Albumin 3.1 L (3.5-5.0) g/dL Urine Color (YELLOW) Urine Appearance (CLEAR) Urine pH (5-6) Ur Specific [place] (1.005-1.025) Urine Protein (Negative) Urine Ketones (NEGATIVE) Urine Blood (0-5) Faisal/ul Urine Nitrite (NEGATIVE) Urine Bilirubin (NEGATIVE) Urine Urobilinogen (0-1) mg/dL Ur Leukocyte Esterase (NEGATIVE) Urine WBC (Auto) (0-5) /HPF Urine RBC (Auto) (0-2) /HPF U Epithel Cells (Auto) (FEW) /HPF Urine Bacteria (Auto) (NEGATIVE) /HPF Urine Mucus (Auto) (NEGATIVE) /HPF Urine Culture Reflexed (NO) Urine Glucose (NEGATIVE) mg/dL Influenza Type A Ag (NEGATIVE) Influenza Type B Ag (NEGATIVE) RSV (PCR) (Negative) SARS-CoV-2 (PCR) (NEGATIVE) Group A Strep Antibody (NEGATIVE) Slides for Path Review YES 12/16/19 12/16/19 Range/Units 12:00 18:15 WBC (4.0-10.5) K/mm3 RBC (4.1-5.6) M/mm3 Hgb (12.5-18.0) gm/dl Hct (42-50) % MCV (78-100) fl MCH (26-32) pg MCHC (32-36) g/dl RDW (11.5-14.0) % Plt Count (150-450) K/mm3 MPV (7.5-11.0) fl Gran % (36.0-66.0) % Eos # (Auto) (0-0.5) Absolute Lymphs (auto) (1.0-4.6) Absolute Monos (auto) (0.0-1.3) Lymphocytes % (24.0-44.0) % Monocytes % (0.0-12.0) % Eosinophils % (0.00-5.0) % Basophils % (0.0-0.4) % Absolute Granulocytes (1.4-6.9) Basophils # (0-0.4) Sodium 132 L 134 L (137-145) mmol/L Potassium 3.5 3.4 L (3.5-5.1) mmol/L Chloride 100 103 (98-107) mmol/L Carbon Dioxide 26 26 (22-30) mmol/L Anion Gap 9.6 9.3 (5-15) MEQ/L BUN 11 10 (9-20) mg/dL Creatinine 0.75 0.70 (0.66-1.25) mg/dL Estimated GFR > 60.0 > 60.0 ML/MIN Glucose 117 H 133 H (74-106) mg/dL Lactic Acid (0.4-2.0) Calcium 7.8 L 8.0 L (8.4-10.2) mg/dL Magnesium 0.9 L* (1.6-2.3) mg/dL Total Bilirubin (0.2-1.3) mg/dL AST (17-59) U/L ALT (0-50) U/L Alkaline Phosphatase (38-126) U/L Troponin I (0.000-0.034) ng/mL Serum Total Protein (6.3-8.2) g/dL Albumin (3.5-5.0) g/dL Urine Color (YELLOW) Urine Appearance (CLEAR) Urine pH (5-6) Ur Specific [place] (1.005-1.025) Urine Protein (Negative) Urine Ketones (NEGATIVE) Urine Blood (0-5) Faisal/ul Urine Nitrite (NEGATIVE) Urine Bilirubin (NEGATIVE) Urine Urobilinogen (0-1) mg/dL Ur Leukocyte Esterase (NEGATIVE) Urine WBC (Auto) (0-5) /HPF Urine RBC (Auto) (0-2) /HPF U Epithel Cells (Auto) (FEW) /HPF Urine Bacteria (Auto) (NEGATIVE) /HPF Urine Mucus (Auto) (NEGATIVE) /HPF Urine Culture Reflexed (NO) Urine Glucose (NEGATIVE) mg/dL Influenza Type A Ag (NEGATIVE) Influenza Type B Ag (NEGATIVE) RSV (PCR) (Negative) SARS-CoV-2 (PCR) (NEGATIVE) Group A Strep Antibody (NEGATIVE) Slides for Path Review - Radiology Impressions Radiology Exams & Impressions: Radiology Procedures Category Date Time Status CHEST 1 VIEW (PORTABLE) Stat Exams 12/15/19 21:09 Completed Assessment/Plan (1) Fever Current Visit: Yes Status: Acute Qualifiers: Fever type: unspecified Qualified Code(s): R50.9 - Fever, unspecified Assessment & Plan: This does not appear to be neutropenic fever. Patient has stable white count. No fevers this am and not on antipyretics. Patient is on chemo medication that makes him immunocompromised and UA was suggestive of UTI. Will continue to monitor fever and patient is being treated for UTI. Code(s): R50.9 - FEVER, UNSPECIFIED (2) Hypomagnesemia Current Visit: Yes Status: Acute Assessment & Plan: Patient was found to have a mag level of .6. He is on Xeloda which can lead to a low mag level. He was repleted with 2 g of Mag and it was still low. He will get another 2 g and get repeat Mag level in am. This likely contributed to his low potassium as well. Patient will need to go home on Mag oxide. Code(s): E83.42 - HYPOMAGNESEMIA (3) UTI (urinary tract infection) Current Visit: Yes Status: Acute Assessment & Plan: Patient's UA indicated a UTI. Patient was started on azith and rocephin. Will continue on the rocephin for UTI and follow up on culture Code(s): N39.0 - URINARY TRACT INFECTION, SITE NOT SPECIFIED (4) Stomatitis Current Visit: Yes Status: Acute Assessment & Plan: Likely caused by Xeloda Code(s): K12.1 - OTHER FORMS OF STOMATITIS (5) Hypokalemia Current Visit: Yes Status: Acute Assessment & Plan: Patient was started on HCTZ in addition to torsemide he was already on Potassium was not increased. Patient is also on Xeloda which can cause low mag leading to low potassium. It is being repleted with multiple doses of PO potassium as well as correcting the mag Code(s): E87.6 - HYPOKALEMIA
[2019-12-16] MEDS ORDERED: CHOLECALCIFEROL PO SCH (22:00)
[2019-12-16] MEDS ORDERED: ANUSOL-HC 2.5% CREAM 30 GM TOP SCH (22:00)
[2019-12-16] MEDS ORDERED: Vitamin C 500 MG PO SCH (22:00)
[2019-12-16] MEDS ORDERED: ZOLOFT 50 MG TABLET PO SCH (22:00)
[2019-12-16] MEDS ORDERED: VITAMIN D PO SCH (22:00)
[2019-12-16] MEDS ORDERED: ROCEPHIN 1 Gm-D5w 50 ml Bag** 1 G/50 ML IVPB IV SCH (22:00)
[2019-12-17] MEDS: TYLENOL 325 MG PO PRN (01:03)
[2019-12-17] MEDS: Sodium Chloride 0.9% 1000 ML 1,000 ML IV SCH (01:04)
[2019-12-17 05:20] LABS: ANION GAP 7.6 MEQ/L (5-15); BLOOD UREA NITROGEN 8 mg/dL (9-20); CHLORIDE 105 mmol/L (98-107); Calcium 7.9 mg/dL (8.4-10.2); Carbon Dioxide 26 mmol/L (22-30); Creatinine 1 0.64 mg/dL (0.66-1.25); Glucose 116 mg/dL (74-106); Potassium 3.4 mmol/L (3.5-5.1); SODIUM 135 mmol/L (137-145)
[2019-12-17] MEDS: Magnesium 1 Gm / 100 Ml D5W*** 100 ML IV SCH ×2 (05:42→06:39)
[2019-12-17 10:02] LABS: ANION GAP 8.5 MEQ/L (5-15); BLOOD UREA NITROGEN 7 mg/dL (9-20); CHLORIDE 105 mmol/L (98-107); Calcium 7.8 mg/dL (8.4-10.2); Carbon Dioxide 26 mmol/L (22-30); Glucose 122 mg/dL (74-106); Potassium 3.4 mmol/L (3.5-5.1); SODIUM 135 mmol/L (137-145)
[2019-12-17 11:53] VITALS: BP 121/75; PULSE 66; O2SAT 96
--- NOTE | 2019-12-17 12:02 | PCM.DS ---
Discharge Summary Date of Admission: 12/16/19 01:40 Date of Discharge: 12/17/19 Admitting Physician: CARLOS BUI Primary Care Provider: CRISTIANO REN Allergies Allergies No Known Drug Allergies Allergy (Unverified 12/15/19 20:53) Hospital Summary - Hospital Course Hospital Course: Pt. admitted for hypokalemia and subsequently found to have root cause of hypomagnesemia. Pt. has been aggressively treated and we now have levels at an acceptable level for the patient to be discharged, his blood pressure has been well controled with not treating it and we will not resume his HCTZ at this time. - Vitals & Intake/Output Vital Signs: Vital Signs Temperature 97.8 F 12/17/19 11:53 Pulse Rate 66 12/17/19 11:53 Respiratory Rate 18 12/17/19 11:53 Blood Pressure 121/75 12/17/19 11:53 O2 Sat by Pulse Oximetry 96 12/17/19 11:53 Intake & Output: Intake & Output 12/14/19 12/15/19 12/16/19 12/17/19 11:59 11:59 11:59 11:59 Intake Total 100 3464 Output Total 400 1200 Balance -300 2264 Weight 93.4 kg - Lab Result Diagrams: 12/16/19 09:20 12/17/19 09:49 Lab Results-Last 24 Hrs: Lab Results-Last 24 Hours 12/16/19 12/16/19 12/17/19 Range/Units 12:00 18:15 04:45 Sodium 132 L 134 L 135 L (137-145) mmol/L Potassium 3.5 3.4 L 3.4 L (3.5-5.1) mmol/L Chloride 100 103 105 (98-107) mmol/L Carbon Dioxide 26 26 26 (22-30) mmol/L Anion Gap 9.6 9.3 7.6 (5-15) MEQ/L BUN 11 10 8 L (9-20) mg/dL Creatinine 0.75 0.70 0.64 L (0.66-1.25) mg/dL Estimated GFR > 60.0 > 60.0 > 60.0 ML/MIN Glucose 117 H 133 H 116 H (74-106) mg/dL Calcium 7.8 L 8.0 L 7.9 L (8.4-10.2) mg/dL Magnesium 0.9 L* 1.0 L* (1.6-2.3) mg/dL 12/17/19 12/17/19 Range/Units 09:49 09:49 Sodium 135 L (137-145) mmol/L Potassium 3.4 L (3.5-5.1) mmol/L Chloride 105 (98-107) mmol/L Carbon Dioxide 26 (22-30) mmol/L Anion Gap 8.5 (5-15) MEQ/L BUN 7 L (9-20) mg/dL Creatinine 0.60 L (0.66-1.25) mg/dL Estimated GFR > 60.0 ML/MIN Glucose 122 H (74-106) mg/dL Calcium 7.8 L (8.4-10.2) mg/dL Magnesium 1.2 L (1.6-2.3) mg/dL Micro Results-Entire Visit: Microbiology 12/15/19 21:40 Blood Culture - Preliminary Blood NO GROWTH TO DATE 12/15/19 21:30 Blood Culture - Preliminary Blood NO GROWTH TO DATE - Radiology Exams Ordered Rad Exams-Entire Visit: Radiology Procedures Category Date Time Status CHEST 1 VIEW (PORTABLE) Stat Exams 12/15/19 21:09 Completed Discharge Exam General Appearance: no apparent distress, alert Neurologic Exam: alert, oriented x 3, cooperative, normal mood/affect, nml cerebellar function, sensation nml, No motor deficits Eye Exam: PERRL, EOMI, eyes nml inspection Ears, Nose, Throat Exam: normal ENT inspection, pharynx normal, moist mucous membranes Neck Exam: normal inspection, non-tender, supple, full range of motion Respiratory Exam: normal breath sounds, lungs clear, No respiratory distress Cardiovascular Exam: regular rate/rhythm, normal heart sounds Gastrointestinal/Abdomen Exam: soft, No tenderness, No mass Male Genitalia Exam: deferred Rectal Exam: deferred Back Exam: normal inspection, normal range of motion, No CVA tenderness, No vertebral tenderness Extremity Exam: normal inspection, normal range of motion Skin Exam: normal color, warm, dry, rash (noted on face treating with 2.5% hydrocortizone) Final Diagnosis/Problem List - Final Discharge Diagnosis/Problem (1) Hypokalemia Current Visit: Yes Status: Acute Assessment & Plan: d/c on 60meq per day recheck labs 799 see in office 0900. Level at 3.4 today Code(s): E87.6 - HYPOKALEMIA (2) Hypomagnesemia Current Visit: Yes Status: Acute Assessment & Plan: d/c on 1200mg per day recheck 799 see in office 0900 level at 1.2 today Code(s): E83.42 - HYPOMAGNESEMIA - Discharge Discharge Date: 12/17/19 Disposition: Home, Self-Care Condition: Stable Prescriptions: No Action Prochlorperazine Maleate 10 mg [Compazine 10 mg] 1 tab PO Q6H PRN PRN PRN Reason: Nausea/Vomiting Nystatin/TCN/Hc/Diphenhydram [Alma's Magic Mouthwash] 5 ml PO QID PRN PRN PRN Reason: Thrush Potassium Chloride [Klor-Con M20] 1 tab PO HS Hydrocortisone 2.5% 30 gm [Anusol-Hc 2.5% Cream 30 gm] 1 unit TOP HS Alprazolam 1 mg [Xanax 1 mg] 1 tab PO BID PRN PRN PRN Reason: Anxiety Capecitabine [Xeloda] 4 tab PO BID Cholecalciferol (Vitamin D3) [Vitamin D3] 1 tab PO HS Sertraline HCl 50 mg [Zoloft 50 mg Tablet] 1 tab PO HS Ascorbic Acid [Vitamin C] 500 mg PO HS Outpatient Orders: BMP Time Frame: 2 Days, Facility: [facility], Location: LABORATORY [facility] Time Frame: 2 Days, Facility: [facility], Location: LABORATORY Additional Instructions: Paper rx for potassium 20 TID and mag-ox 400 TID given. lab for am prior to appointment to check bmp and magnesium given on paper as well. Follow up with: CRISTIANO REN [Primary Care Provider] - 1 Week (see at 0900)
== END 2019-12-17 12:55 | disposition home or self-care (01) ==
LOC: ED 20:48 → MED SURG 12-16 01:40
PROVIDERS: ADMIT Family Medicine; ATTEND Family Medicine
DX: E87.6 Hypokalemia (principal); E83.42 Hypomagnesemia; N39.0 Urinary tract infection, site not specified; K12.1 Other forms of stomatitis; I10 Essential (primary) hypertension; Z79.899 Other long term (current) drug therapy; Z85.038 Personal history of other malignant neoplasm of large intestine; Z85.05 Personal history of malignant neoplasm of liver
CPT/HCPCS: 36000; 36415; 71045; 80048; 80053; 81001; 83605; 83735; 84132; 84484; 85025; 85027; 87040; 87086; 87631; 87651; 93005; 93041; 96360; 96361; 96365; 96367; 99285; U0003; 93268; 96374; J0456; J0696; J3475; J3480; A9270-GY; G0378